=== PATIENT | male | born 1935 ===

== ENCOUNTER → 2017-11-24 18:49 | Outpatient (REF) | payer MEDICARE, SELFPAY ==
[2017-11-24 20:07] LABS: Hemoglobin A1C% w Est Avg Glu 6.9 % (4.0-6.0)
== END ==
LOC: LAB 18:49
PROVIDERS: Visit Provider Family Medicine
DX: E11.9 Type 2 diabetes mellitus without complications (principal)
CPT/HCPCS: 36415; 83036

== ENCOUNTER → 2018-02-07 14:07 | Outpatient (REF) | payer MEDICARE, SELFPAY ==
[2018-02-07 14:13] LABS: Bacteria Urine None Seen
[2018-02-07 14:58] LABS: Appearance Urine UA CLEAR; Bilirubin Urine UA NEGATIVE (NEGATIVE); Color Urine UA YELLOW; Glucose Urine UA TRACE g/dL (Normal); Ketones Urine UA NEGATIVE (NEGATIVE); Leukocyte Esterase Urine UA NEGATIVE (NEGATIVE); Nitrite Urine UA NEGATIVE (Negative); Occult Blood Urine UA NEGATIVE (Negative); Protein Urine UA TRACE (Negative); Urobilinogen Urine UA 0.2 E.U./dL (0.2); pH Urine UA 5.5 (4.5-8.0)
[2018-02-07 15:21] LABS: Hematocrit 45.5 % (41-53); Hemoglobin 15.2 g/dL (13.5-17.5); Mean Corpuscular HGB Conc 33.5 % (30-36); Mean Corpuscular Hemoglobin 31.4 PG (26-34); Mean Corpuscular Volume 93.7 fL (80-100); Platelet Count 202 X10^3/uL (150-400); Red Blood Cell Count 4.86 X10^6/uL (4.5-5.9); Red Cell Distribution Width 15.1 % (11.6-14.8); White Blood Cell Count 8.3 X10^3/uL (4.5-11.0)
[2018-02-07 15:22] LABS: Add Manual Diff / Slide Review YES
[2018-02-07 15:23] LABS: Alanine Aminotransferase 23 IU/L (21-72); Albumin 4.2 g/dL (3.5-5.0); Albumin Globulin Ratio 1.4 (1.0-2.8); Alkaline Phosphatase 83 U/L (38-126); Aspartate Aminotransferase 39 IU/L (17-59); BUN Creatinine Ratio 24.3 (6-22); Blood Urea Nitrogen 34 mg/dL (9-20); Calcium 8.9 mg/dL (8.4-10.2); Carbon Dioxide 31 mmol/L (22-32); Chloride 101 mmol/L (98-107); Cholesterol 127 mg/dL (140-199); Estimated Glomerular Filt Rate 48.5 mL/min (>60); Globulin 2.9 g/dL (1.7-4.1); Glucose 143 mg/dL (80-110); HDL Cholesterol 28 mg/dL (40-60); HEMOLYSIS 49 (0-50); LDL Cholesterol Calculated 58 mg/dL (<100); Sodium 146 mmol/L (137-145); Total Protein 7.1 g/dL (6.3-8.2); Triglycerides 203 mg/dL (35-150)
[2018-02-07 15:44] LABS: Potassium 5.2 mmol/L (3.4-5.1)
[2018-02-07 15:55] LABS: Culture Indicated Urine Cult Not Indicated; RBC Urine 0-1/HPF (0-5/HPF); Squamous Epithelial Cell Urine 0-1 /HPF; Urine Comments Microscopic Normal; WBC Urine 0-1/HPF (0-5/HPF)
[2018-02-07 17:28] LABS: Neutrophils Absolute Manual 4233 /uL (3000-5900); RBC Morphology Normal Morphology; Total Cells Counted 100
[2018-02-07 17:40] LABS: Creatinine Urine Random 145.4 mg/dL
[2018-02-07 17:43] LABS: Microalbumi Creatinin Ratio Ur 46.7 ug/mg CR (<30); Microalbumin Urine Random 6.8 mg/dL (0-1.6)
== END ==
LOC: LAB 14:07
PROVIDERS: Visit Provider Family Medicine
DX: I10 Essential (primary) hypertension (principal); E88.9 Metabolic disorder, unspecified; E75.6 Lipid storage disorder, unspecified; R80.9 Proteinuria, unspecified
CPT/HCPCS: 80053; 80061; 81001; 82043; 82570; 85025